=== PATIENT | female | born 1940 | race Caucasian/White ===

== ENCOUNTER 2017-08-01 08:31 | Emergency (ER) | payer MEDICARE, SELFPAY ==
[2017-08-01 08:32] VITALS: BP 183/93; PULSE 85; RESP 18; TEMP 36.6; O2SAT 99; BMI 25.0
--- NOTE | 2017-08-01 08:44 | CT_ITS ---
STUDY: CT BRAIN WITHOUT CONTRAST REASON FOR EXAM: Female, 77 years old. And injury following a fall. RADIATION DOSAGE (If Supplied By Facility): CTDIvol = ( 44.99 ) mGy, DLP = ( 765.18 ) mGycm TECHNIQUE: Transaxial CT imaging of the brain was performed without administration of intravenous contrast material. Individualized dose optimization techniques were used for this CT. COMPARISON: None. FINDINGS: Normal soft tissue structures. Normal calvarium. There is mild cerebral atrophy with widening of the extra-axial spaces and ventricular dilatation. There are areas of decreased attenuation within the white matter tracts of the supratentorial brain, consistent with microvascular disease changes. Normal basal ganglia and thalami. Normal brainstem. Normal cerebellum. There is no intracranial hemorrhage. There are no findings of an acute ischemic infarction. Atherosclerotic calcification of the vertebral arteries and cavernous portions of the internal carotid arteries bilaterally. Normal visualized paranasal sinuses. CT/Brain/Head without Contrast IMPRESSION: Chronic involutional changes of the brain. Electronically Signed: Jovanni Beverly MD at 9:23 EST Tel [phone], Service support ,
--- NOTE | 2017-08-01 08:45 | CT_ITS ---
STUDY: CT CERVICAL SPINE WITHOUT CONTRAST REASON FOR EXAM: Female, 77 years old. Fall and injury to the occipital region. RADIATION DOSAGE (If Supplied By Facility): CTDIvol = ( 18.28 ) mGy, DLP = ( 421.26 ) mGycm TECHNIQUE: High resolution transaxial imaging was performed without contrast material. Sagittal and coronal images were reconstructed. Individualized dose optimization techniques were used for this CT. COMPARISON: None FINDINGS: Normal craniovertebral junction. Normal anterior atlantoaxial articulation. Normal odontoid process. There is straightening of the normal cervical lordosis. Normal vertebral bodies and posterior osseous elements. C2-3: Normal endplates. Normal disc height and morphology. Normal central canal and intervertebral neuroforamina. C3-4: Normal endplates. Normal disc height and morphology. Normal central canal and intervertebral neuroforamina. C4-5: Marked degree of disc space narrowing and spondylosis. Uncovertebral arthrosis. Moderate degree of bilateral neural foraminal stenosis worse on the right side. C5-6: Marked degree of disc space narrowing and spondylosis. Uncovertebral arthrosis. Mild bilateral neural foraminal stenosis. Minimal retrolisthesis of C5 on C6. C6-7: Mild degree of disc space narrowing with spondylosis. Normal visualized soft tissue structures. CT/Spine Cervical without Contras IMPRESSION: Multilevel degenerative changes, as described above. Electronically Signed: Jovanni Beverly MD at 9:24 EST Tel [phone], Service support ,
--- NOTE | 2017-08-01 08:45 | ED.VISSUMM ---
- ER Visit Summary Date of Service: 08/01/17 Chief Complaint: Head injury, neck pain History of Present Illness: The patient is a 77 F who presents with head pain and neck pain. One week ago today she was skiing in [place] when she fell. She was wearing a helmet at that time. She was able to ski down the hill and she laid in the hotel room for the rest of the week. She did not return to skiing. Since then she has had pain in the head and neck. She has felt off balance. There was no LOC when she fell. She has a history of torticollis of the neck and gets Botox injections of her neck. She feels like it is stiff. Denies any numbness or tingling. Physical Examination: Vital signs reviewed. HEENT exam unremarkable. Heart is regular rate and rhythm without murmurs. Lungs are clear to auscultation. Abdomen is soft and nontender. Extremities reveal no edema. Cervical spine is nontender but she has decreased range of motion due to stiffness skin exam normal. Neurologic exam normal. Test Results: CT scan of the head and cervical spine reveal chronic, degenerative changes Emergency Department Course and Treatment: Patient likely has a mild concussion. I do not feel she requires any further imaging or testing. She will take nonsteroidals [id number]. She will ice her neck. She will need to follow-up with her PCP and her neurologist. Treatment Plan: [] Disposition: Discharge Impression: Concussion without loss of consciousness This note was generated with [employer] dictation software. It may contain incorrect words, spelling, and punctuation that were not noted in review of the chart prior to signing ED Disposition - Plan for ED Patient: Chief Complaint: Head Injury Referrals: Ness Mcbride MD [Primary Care Provider] -
--- NOTE | 2017-08-01 09:17 | NURSING ---
NO LW OR POA
--- NOTE | 2017-08-01 09:36 | ED.DEP ---
ED Disposition - Plan for ED Patient: Disposition: Home or Assisted Living Chief Complaint: Head Injury Instructions: ED Concussion Referrals: Ness Mcbride MD [Primary Care Provider] -
[2017-08-01 09:52] VITALS: PULSE 86; RESP 16; O2SAT 96
== END 2017-08-01 09:53 | disposition home or self-care (01) ==
PROVIDERS: Emergency Provider Emergency Medicine; Family Provider Internal Medicine; PCP Internal Medicine
DX: S06.0X0A Concussion without loss of consciousness, initial encounter (principal); M43.6 Torticollis; R40.2410 Glasgow coma scale score 13-15, unspecified time; E78.00 Pure hypercholesterolemia, unspecified; V00.321A Fall from snow-skis, initial encounter; Y93.23 Activity, snow (alpine) (downhill) skiing, snowboarding, sledding, tobogganing and snow tubing; Y92.9 Unspecified place or not applicable; Z79.899 Other long term (current) drug therapy
CPT/HCPCS: 70450; 72125; 99282

== ENCOUNTER 2018-01-20 09:00 | Outpatient (RCR) | payer MEDICARE, SELFPAY ==
--- NOTE | 2017-11-15 13:50 | HP.PTEVAL_ITS ---
Patient's Visit Information VASYL KELLY is a 77 year old F referred to Physical Therapy by Marek Higginbotham with a diagnosis of L TKA. Date of Evaluation: 11/11/17 Physical Therapist: Desmond Ascencio - Visit Plan Frequency: 2x /Week Duration: 6 Weeks Plan: Start with ROM into knee ext and flexion. Quad, glute med activitation. HS stretching, gait training and modalities to reduce inflammatory process. - Subjective Subjective: Pt. is here today for her initial evaluation with unilateral L knee OA with subsequent L TKA. DOS 11/02/17. Pt. is WBAT. Pt. reports having a history of 2 L knee arthroscopes prior to this surgery. Pt. arrives today walking with cane, but tends to walk very straight legged. Pt. reports pain at 5 /10 with all movements and standing. Pt. is icing as prescribed. Pt. reports working on prior exercises to surgery and is back to doing them. Pt. denies N/T or calf pain. Pt. is to see surgeon in early November. Pt. prior to surgery was very active in community and in gym with classes and exercises. Pt. is hopeful to reduce symptoms in order to get back to all PLOF without issues. - Pain L knee Pain Intensity (Out of 10): 5 Pain Intensity Range: 2, 5 - Objective POSTURE: Pt. has increased R sided wt. shift in stance. Pt. lacks TKE on LLE in stance with decreased WBing on this leg. Pt. else where has normal posture. PALPATION: Pt. has increased tenderness throughout L knee. Pt. has no calf pain , negative homans sign. Pt. has heeling incision. Pt. does have increased redness along incision, no drainage noted. NEUROLOGICAL: Pt. has normal sensation throughout bilateral LEs. Pt. has 2+ achilles DTR. Pt. is able to rise on heels and toes without issues. No signs of weakness or LOB. ROM: L knee 0-12-78deg. Increased pain with over pressures in flexion and extension. Pt. has normal hip ROM bilatearlly. Pt. has tightness in bilateral HS and hip flexors. R kne 0-0-128deg. MMT: RLE- ankle 5/5 throughout; knee- ext 5-/5, flexion 4+/5; hip- flexion 4+/5, abd 4/5, ext 4/5. LLE- ankle 5/5 throughout; knee- ext 4-/5; flexion 4/5; hip- flexion 4-/5, and 4/5, ext 4/5. Core strenth- poor+. GAIT: Pt. ambulates with single point cane, but minimal knee motion into ext and flexion. Pt. keeps a rigid knee throughout. Pt. has increased R sided trunk lean with gait. Pt. had improved knee ROM with VCing. STAIRS: Pt. completed with step to pattern with 2 HR without LOB or issues. - Goals Goal 1:: Pt. to be I with HEP. Goal Time Frame: 4-6 Weeks Goal 2:: Pt. to have increased L knee ROM to atleast 0-0-120deg allowing for increased toleance to all mobility. Goal Time Frame: 4-6 Weeks Goal 3:: Pt. to ambulate unlimited distances with 0-2/10 pain without AD allowing for increased tolerance to community mobility. Goal Time Frame: 4-6 Weeks Goal 4:: Pt. to have increased LLE strength by 1/2 grade of all effected musculature reducing stress applied to L knee joint with all functional mobility. Goal Time Frame: 4-6 Weeks Goal 5:: Pt. to sleep throughout the night without 0-2/10 pain in L knee allowing for increased quality of life. Goal Time Frame: 4-6 Weeks Goal 6:: Pt. to negotiate steps with reciprocal pattern with 1 HR without increase in symptoms. Goal Time Frame: 4-6 Weeks - Rehabilitation Potential Physical Therapy Diagnosis: L total knee arthroplasty with subsequent hypomobility, decreased strength, decreased functional mobility, gait difficulty , and increased pain. She would benefit from PT to address above limitations adn progress back to prior levels of function without issues. Rehabilitation Potential: Excellent - Anticipated Interventions Patient/Client Instruction: Educate patient on: Condition, Plan of Care, Risk Factors, Benefits of Fitness Program For the Purpose of:: To improve health and function, To foster healthy habits, To improve decision making, To facilitate caregiver knowledge, To improve self management, To prevent re-injury, To improve ability to perform tasks related to life management, To improve tolerance to ADL's Therapeutic Exercise to Include: Strength training, Power training, Endurance training, Body mechanics, Postural training, Flexibilty training, Gait and locomotor training, Passive ROM, Active ROM For the Purpose of:: To decrease pain, To decrease swelling/inflammation, To increase ROM, To improve nutrient delivery to tissue, To increase oxygenation perfusion, To improve muscle performance and motor function, To improve ability to perform ADL's, To improve gait and locomotor functions, To improve health of tissue, To decrease soft tissue restriction, To increase flexibility/ROM, To improve balance, To improve safety with gait Manual Therapy Techniques to Include: Mobilization, Passive ROM, Soft tissue mobilization For the Purpose of:: To decrease pain, To decrease swelling/inflammation, To increase ROM, To improve nutrient delivery to tissue IF ES: Yes Cryotherapy (ice pack, ice massage): Yes Vasopneumatic device: Yes For the Purpose of:: To decrease pain, To decrease swelling/inflammation, To increase ROM Thank you for the opportunity to evaluate your patient. For Medicare and Medicare HMO plans, please review the plan of care and approve it. It will need to be FAXED BACK to us at [phone] for Medicare purposes. Please let me know if there are questions or concerns regarding this plan of care. Physician Signature: Date:
--- NOTE | 2017-12-20 10:02 | HP.PTREVAL_ITS ---
Marek Higginbotham, It has been my pleasure to treat VASYL KELLY over the last 12 visits for L TKA. Please see the progress note below for an update on the physical therapy plan of care! Subjective: Pt. reports no pain pre treatment today. Pt. reports no pain since last week. Pt. pleased with reduced symptoms. Pt. reports I am getting there, but I still want to get back to my classes. I think I need to be a little stronger first. Pt. reprots being HEP compliant. Objective/Function: Pt. toelrated all PT without adverse reaction. ROM 0-0- 118deg Active, PROM 0-0-122deg. Cont. to work on actrive ROM. MMT- L ankle- 5/ 5 throughout; knee- ext 4+/5. flexion 4/5; hip- flexion 4+/5, abd 4+/5, ext 4/ 5. Core strenth- fair. GAIT: pt. ambulates with normal pattern, lateral lateral hip translation. STAIRS: pt. has mild tenderness with descending, 1 HR to complete with reciprocal pattern. Pt. has desires to get back to dynamic HIT classes, yoga classes and therefor would benefit from continued PT to focus on active end range of motions and cont to progress LLE stability and strengthening. Plan Plan: Extend POC x2 per week for 4 weeks. Focus on increasing active ROM, L knee stability and LLE strength with functional mobility. Goals Goal 1:: Pt. to be I with HEP. Goal Time Frame: 4-6 Weeks Goal Progress: Goal Met Goal 2:: Pt. to have increased L knee ROM to atleast 0-0-120deg allowing for increased toleance to all mobility. Goal Time Frame: 4-6 Weeks Goal Progress: Progressing Goal 3:: Pt. to ambulate unlimited distances with 0-2/10 pain without AD allowing for increased tolerance to community mobility. Goal Time Frame: 4-6 Weeks Goal Progress: Progressing Goal 4:: Pt. to have increased LLE strength by 1/2 grade of all effected musculature reducing stress applied to L knee joint with all functional mobility. Goal Time Frame: 4-6 Weeks Goal Progress: Progressing Goal 5:: Pt. to sleep throughout the night without 0-2/10 pain in L knee allowing for increased quality of life. Goal Time Frame: 4-6 Weeks Goal Progress: Goal Met Goal 6:: Pt. to negotiate steps with reciprocal pattern with 1 HR without increase in symptoms. Goal Time Frame: 4-6 Weeks Goal Progress: Progressing Anticipated Interventions Patient/Client Instruction: Educate patient on: Condition, Plan of Care, Risk Factors, Benefits of Fitness Program For the Purpose of:: To improve health and function, To foster healthy habits, To improve decision making, To facilitate caregiver knowledge, To improve self management, To prevent re-injury, To improve ability to perform tasks related to life management, To improve tolerance to ADL's Therapeutic Exercise to Include: Strength training, Power training, Endurance training, Body mechanics, Postural training, Flexibilty training, Gait and locomotor training, Passive ROM, Active ROM For the Purpose of:: To decrease pain, To decrease swelling/inflammation, To increase ROM, To improve nutrient delivery to tissue, To increase oxygenation perfusion, To improve muscle performance and motor function, To improve ability to perform ADL's, To improve gait and locomotor functions, To improve health of tissue, To decrease soft tissue restriction, To increase flexibility/ROM, To improve balance, To improve safety with gait Manual Therapy Techniques to Include: Mobilization, Passive ROM, Soft tissue mobilization For the Purpose of:: To decrease pain, To decrease swelling/inflammation, To increase ROM, To improve nutrient delivery to tissue IF ES: Yes Cryotherapy (ice pack, ice massage): Yes Vasopneumatic device: Yes For the Purpose of:: To decrease pain, To decrease swelling/inflammation, To increase ROM Please do not hesitate to contact me at [phone] by phone or Fax: if you have questions or concerns regarding this new plan of care! Sincerely, Desmond Ascencio
--- NOTE | 2018-01-20 12:50 | HP.PTDCSUM ---
HP - PT D/C Summary It has been my pleasure to treat VASYL KELLY under orders from Marek Higginbotham, for the diagnosis of L TKA for a total of 20 visit(s). Discharge Date: 01/20/18 Please see the following information for a summary of their discharge status. - Subjective Subjective: Pt. reports being about 90% better overall. Pt. reports being HEP compliant and has started back to all of her aerobic classes without issues. Pt. is very pleased with progress. Pt. reports no pain currently. - Pain L knee Pain Intensity (Out of 10): 0 - Overall Improvement % Improvement: 90 - Objective Objective/Function: ROM- AROM 0-0-117deg. PROM 0-0-123deg. Pt. reports tightness at end ranges of flexion. MMT- L knee: flexion 4+/5, ext 5/5; hip- flexion 5-/5, adb 5-/5, ext 5-/5. GAIT: pt. ambulates with normalized pattern without increase in symptoms. STAIRS: Pt. does very well with ascending, she does have some functional weakness with end ranges descending on RLE. Pt. is donovan tocomplete with reciprocal pattern without use of HR. Pt. pleased. - Goals Goal 1:: Pt. to be I with HEP. Goal Progress: Goal Met Goal 2:: Pt. to have increased L knee ROM to atleast 0-0-120deg allowing for increased toleance to all mobility. Goal Progress: Goal Met Goal 3:: Pt. to ambulate unlimited distances with 0-2/10 pain without AD allowing for increased tolerance to community mobility. Goal Progress: Goal Met Goal 4:: Pt. to have increased LLE strength by 1/2 grade of all effected musculature reducing stress applied to L knee joint with all functional mobility. Goal Progress: Goal Met Goal 5:: Pt. to sleep throughout the night without 0-2/10 pain in L knee allowing for increased quality of life. Goal Progress: Goal Met Goal 6:: Pt. to negotiate steps with reciprocal pattern with 1 HR without increase in symptoms. Goal Progress: Goal Met - Plan Plan: Pt. to be DC to HEP including aerobic classes, cycling classes. Pt. is to add in hip/core/knee strengthening as toleraetd to increase stability at knee joint with all functional moblity. Pt. consents. - D/C Information Discharge Comments: Pt. was seen for her L TKA. Pt. progressed well with her ROM and then strengtening progression. Pt. is very active with exercises classes. Pt. is independent with all exercises currently. Pt. does have desires to skii again. She plans on approaching physician for brace once that season approaches. PT. will be DC from PT at this point in time. If there are questions or concerns regarding this patient's physical therapy, please feel free to call me at [phone]. Thank you for the referral of this patient. Sincerely, Desmond Ascencoi
== END 2018-01-20 19:00 | disposition home or self-care (01) ==
LOC: PT 09:00
PROVIDERS: Family Provider Internal Medicine; PCP Internal Medicine; Visit Provider Orthopaedic Surgery
DX: M17.12 Unilateral primary osteoarthritis, left knee (principal)
CPT/HCPCS: 97016; 97110; 97162; 97530

== ENCOUNTER 2021-03-24 01:51 | Emergency (ER) | payer MEDICARE, SELFPAY ==
[2021-03-24 01:52] VITALS: TEMP 36.8; BMI 25.3
[2021-03-24 01:58] VITALS: BP 164/79; PULSE 94; RESP 18; O2SAT 98
--- NOTE | 2021-03-24 02:12 | RAD_ITS ---
STUDY: X-RAY CHEST REASON FOR EXAM: Female, 81 years old. Cough TECHNIQUE: Single AP portable view of the chest. COMPARISON: None. FINDINGS: No confluent airspace infiltrate. Mild prominence of interstitial markings at bilateral lung bases. No pleural effusion or pneumothorax. Normal size heart. Normal mediastinum and jyoti. Normal visualized pulmonary arteries. There is atherosclerotic calcification of the aortic arch . There are diffuse degenerative changes of the visualized thoracic spine. Normal visualized ribs, clavicles, and shoulders. There is no demonstrated abnormality of the visualized soft tissue structures of the upper abdomen. RAD/Chest 1 View (Portable) IMPRESSION: No acute cardiopulmonary disease Electronically Signed: Farhat Rashid MD at 2:48 EDT Tel , Service support ,
--- NOTE | 2021-03-24 02:12 | EX.ED.VIS.UR ---
HPI HPI - URI History of Present Illness Chief Complaint: Shortness of Breath Informant: patient Onset/Context/Timing Onset: Yesterday Context: Sudden Onset Timing: Continuous Quality: Nonproductive cough, loss of taste and smell, myalgias and arthralgias Location: Respiratory Maximum Severity: Moderate Worsened by: Not Worsened By Swallowing, Eating Solids and Drinking Liquids Relieved by: Not Relieved By Tylenol and NSAIDs Associated Symptoms Associated Symptoms: Positive for Headache, Myalgias, Nausea, Shortness of Breath and Nonproductive cough; Negative for Nasal Congestion, Sinus Pressure, Vomiting, Diarrhea, Chest Pain, Hemoptysis and Productive Cough Narrative Narrative: Patient is a 81-year-old vaccinated person with history of hypertension and hypothyroidism who presents with symptoms consistent with Covid that started yesterday. She states she went to [facility]. She had to stop because she was short of breath and did not feel well. She almost vomited on the way home. She has lost her taste and smell. She does report nonproductive cough. She reports myalgias and arthralgias. She reports nausea without vomiting or diarrhea. She does complain of thirst. She denies joint swelling. She denies rash. Prior similar symptoms: No Recent Illness/Hospitalization: No ROS ROS ED Constitutional Constitutional ED: Reports fever(s) and subjective; Denies chills, sweats or weight loss Eyes Eyes: Denies blurry vision, change in vision or diplopia ENT ENT ED: Reports sore throat; Denies ear pain or rhinorrhea Cardiovascular Cardiovascular: Denies chest pain, orthopnea, palpitations, paroxysmal nocturnal dyspnea or racing heartbeat Respiratory/Chest Respiratory/Chest: Reports cough, dyspnea and dyspnea on exertion; Denies orthopnea, paroxysmal nocturnal dyspnea or sputum Gastrointestinal Gastrointestinal: Reports nausea; Denies abdominal pain, constipation, diarrhea or vomiting Genitourinary Genitourinary ED: Denies dysuria, hematuria or urinary frequency Musculoskeletal Musculoskeletal: Reports arthralgias and myalgias; Denies back pain or neck pain Integumentary Denies rash Neurologic Neurologic: Reports weakness; Denies headache(s) or paresthesias Endocrine Endocrinology: Denies polydipsia, polyphagia or polyuria Hematologic/Lymphatic Hematologic/Lymphatic: Denies easy bleeding or easy bruising [facility] Medical History High cholesterol HTN (hypertension) Home Medications levothyroxine 88 mcg PO DAILY 08/01/17 [History Last Taken Unknown] lisinopril 5 mg PO DAILY 08/01/17 [History Last Taken Unknown] lovastatin 20 mg PO DAILY 08/01/17 [History Last Taken Unknown] hydrocodone-homatropine [Hycodan] 5 ml PO Q6H PRN 3 Days #60 ml 03/24/21 [Rx Last Taken Unknown] Allergy/AdvReac Type Severity Reaction Status Date / Time No Known Allergies Allergy Verified 03/24/21 01:54 Social History (Updated 03/24/21 @ 02:[address] Elliot Quintero MD) household members: none Smoking Status: Never smoker alcohol intake: current alcohol intake frequency: a few times a month substance use type: does not use EXAM Physical Exam Const Vital Signs: 03/24/21 01:52 03/24/21 01:57 03/24/21 01:58 Temperature 98.3 F Temperature Source Temporal Pulse Rate 94 Respiratory Rate 18 Respiratory Effort Normal Non-Labored Respiratory Depth Normal Respiratory Pattern Normal Blood Pressure 164/79 H Blood Pressure Mean 107 Pulse Ox 98 Oxygen Delivery Method Room Air Room Air Positive well nourished and well developed General Appearance ED: well developed; Negative for pallor HEENT Reports dry mucous membranes normocephalic and atraumatic External Ear: external ears normal and no preauricular adenopathy Mouth ED: Yes dry mucous membranes Mouth: dry mucous membranes Throat: posterior oropharynx normal Eyes PERRL and EOMs intact bilaterally General Eye ED: Negative for pale conjunctiva or scleral icterus Neck no lymphadenopathy, supple, no meningeal signs and no JVD Resp normal respiratory effort and No clear to auscultation bilaterally Auscultation: rales bilateral base Cardio S1 normal heart sound, S2 normal heart sound and no murmurs Rate: regular rate Rhythm: regular rhythm Bruits: Negative for carotid bruit or abdominal aortic bruit GI non-tender, non-distended and no masses Auscultation: normoactive bowel sounds Palpation: soft Back/Spine no CVA tenderness Extremity normal to inspection and full ROM General Extremety ED: Negative for cyanosis or tenderness General Extremity: Negative for cyanosis Neuro oriented x3 and CN's II-XII intact bilaterally Sensorium / Orientation: alert Psych mental status grossly normal Skin General Skin Exam: Negative for jaundice or pallor Lesions: no lesions Rashes: no rashes MDM MDM MDM Narrative Medical decision making narrative: Clinically patient has Covid pneumonia. Chest x-ray is obtained to confirm pneumonia as well as basic blood work to rule out anemia, kidney injury, electrolyte abnormality and Covid test. Even though the Covid test is negative clinically patient has upper respiratory symptoms with loss of taste and smell that occurred within the last 6 to 12 hours. Suspect the rapid is a false negative. Patient was told quarantine for 10 days. She was prescribed Hycodan for her cough. The dose she was given in the emergency room suppressed her cough. She feels much better. Lab Data Attestation: I reviewed the patient's lab results. Labs: Laboratory Results - last 24 hr 03/24/21 03/24/21 02:30 02:30 WBC 8.0 RBC 4.33 Hgb 13.3 Hct 39.9 MCV 92.1 MCH 30.7 MCHC 33.3 RDW Std Deviation 41.7 RDW Coeff of Adams 12.4 Plt Count 206 MPV 9.9 Immature Gran % (Auto) 0.400 Neut % (Auto) 75.5 H Lymph % (Auto) 15.0 L [place] % (Auto) 7.1 Eos % (Auto) 1.4 Baso % (Auto) 0.6 Absolute Neuts (auto) 6.0 Absolute Lymphs (auto) 1.20 Nucleated RBC % 0 Sodium 141 Potassium 4.0 Chloride 110 H Carbon Dioxide 23.0 Anion Gap 8 BUN 17 Creatinine 0.92 Estim Creat Clear Calc 41.02 Est GFR (MDRD) Af Amer 75 Est GFR (MDRD) Non-Af 62 BUN/Creatinine Ratio 18.4 Glucose 110 H Calcium 9.3 Covid test is negative. Radiography Diagnostic Testing: Radiology Impression Chest X-Ray 03/24/21 02:12 IMPRESSION: No acute cardiopulmonary disease Electronically Signed: Farhat Rashid MD at 2:48 EDT Tel , Service support , Single view portable chest x-ray was interpreted by me at 0236 as negative. Cardiac silhouette size normal. Mediastinum normal. Lung parenchyma normal. Osseous structures are normal. Discharge Plan Triage Chief Complaint: Shortness of Breath Other Complaint: Cough ED Provider: Elliot Quintero Dx/Rx/DC Orders Clinical Impression: COVID-19 determined by clinical diagnostic criteria Instructions: Coronavirus Disease 2019 (COVID-19): Caring for Yourself or Others Prescriptions: New hydrocodone-homatropine [Hycodan] 5-1.5 mg/5 mL (5 mL) syrup 5 ml PO Q6H PRN (Reason: cough) 3 Days Qty: 60 RF: 0 No Action levothyroxine 88 MCG tablet 88 mcg PO DAILY RF: 0 lisinopril 5 MG tablet 5 mg PO DAILY RF: 0 lovastatin 20 MG tablet 20 mg PO DAILY RF: 0 Primary Care Provider: Ness Mcbride Referrals: Ness Mcbride MD [Primary Care Provider] - 10-14 Days if not better Activity Restrictions/Additional Instructions: Self quarantine for the next 10 days If you are unable to walk across the room or are concerned because you have significant shortness of breath, please return to the emergency department. Disposition Disposition: Home, Self Care
[2021-03-24 02:36] LABS: Basophil# 0.05 X10^3/uL; Basophil% 0.6 % (0-1); Eosinophil# 0.11 X10^3/uL; Eosinophils% 1.4 % (0-5); Hematocrit 39.9 % (37-47); Hemoglobin 13.3 g/dL (12.0-15.0); Mean Corp Hgb Conc 33.3 g/dL (32-36); Mean Corpuscular Hgb 30.7 pg (27.0-32.0); Mean Corpuscular Volume 92.1 fL (81-99); Mean Platelet Vol. 9.9 fl (6.2-12.0); Monocyte# 0.57 X10^3/uL; Monocyte% 7.1 % (0-10); NRBC Flagged by Analyzer 0 % (0-5); Neutrophil # 6.02 X10^3/uL (2.7-7.7); Neutrophil % 75.5 % (47-70); Platelet Count 206 K/mm3 (150-450); RBC Distribution Width CV 12.4 % (11.6-14.6); RBC Distribution Width SD 41.7 fl (35.1-43.9); Red Blood Count 4.33 M/mm3 (4.2-5.4)
[2021-03-24 02:56] LABS: Anion Gap 8 (5-15); BUN 17 mg/dL (7-18); BUN/Creat Ratio 18.4 RATIO (10-20); Calcium,Total 9.3 mg/dL (8.5-10.1); Chloride 110 mmol/L (98-107); Creatinine, Serum 0.92 mg/dL (0.55-1.02); EST Glomerular Filtration Rate 62 mL/min (>60); Est Glom Filt Rate - Afr Amer 75 mL/min (>60); Estimated Creatinine Clearance 41.02 ml/min; Glucose 110 mg/dL (74-106); Sodium Level 141 mmol/L (136-145)
[2021-03-24 03:49] VITALS: BP 173/80; PULSE 82; RESP 19; O2SAT 97
== END 2021-03-24 03:49 | disposition home or self-care (01) ==
PROVIDERS: Emergency Provider Emergency Medicine; PCP Internal Medicine
DX: U07.1 COVID-19 (principal); I10 Essential (primary) hypertension; E03.9 Hypothyroidism, unspecified; Z79.899 Other long term (current) drug therapy
CPT/HCPCS: 71045; 80048; 85025; 87426; 99285; A4216

== ENCOUNTER 2022-11-24 13:30 | Outpatient (RCR) | payer MEDICARE, SELFPAY ==
--- NOTE | 2022-10-04 09:17 | HP.PTEVAL ---
Patient's Visit Information VASYL KELLY is a 82 year old F referred to Physical Therapy by Burak Sharma PA-C with a diagnosis of L hip pain, , IDD, radiculopathyt. Date of Evaluation: 10/04/22 Physical Therapist: Demetri Sawyer, DPT, OCS, CSCS - Visit Plan Frequency: 3x /Week Duration: 4-6 Weeks Plan: patient significantly better today and will try to wean back to activitiy on her own. Llikely was mostly soft tissue inflammation and is 80% better. if pain returns once prednisone gone then will see 2-3x/week for 4 weeks for soft tissue work to gluts and HS, hip and core strength, TENS if needed and wean back to activity. MH. pt to call in next week to 10 days if pain returns or activity progress stagnates or if questions/concerns regarding activity. - Subjective [place] snow mob[place] 28 [place] very bumpy. Hurt during and after back and hips and legs. Hamstrings and gluts were terrible 2 hours later. Was trying to keep butt up off seat alot. Missed two days of skiing and then flew home and could not walk or sit. Tried to get to [employer] for 3 weeks, ended up with Aníbal sharma. Took x rays: degenerative severe in hips and low back spine. has had slight scoliosis in the spine. That pain lasted a month. Given prednisone and muscle relaxer. They have helped tremendously. Overall 80% better. Today 2/10 pain and this is a good day and gradually improving. Does not have back or hip pain right now or prior to this happening. Sleep is OK now but was up at night. Today will be last prednisone. Avoids kettle belss in gyma nd reduce weight, had to modify Sherley and cardio class. Workout is effected. Activities at home are delayed, takes 2x as long as usual to trim tree. Basic ADLS are getting done. 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 - Pain HS and gluts Pain Intensity (Out of 10): 2 Pain Intensity Range: 2, 10 - Objective Walks into PT without antalgia normal and I. Steps reciprocal without rail I without pain, she says this is much better than last week. squats and RDL technique without deficit or pain. AROM L/S without pain. Hip ROM limited only in IR L 5 and R 8 degrees with only slight 1/10 transient L hip pain. - ELIGIO, - ZACKARY. knee and ankle aROM WFL. Excellent mobility in quads and HS, l knee AROM limited due to knee replacement. reflexes 1/3 patella and achilles. Sensation LE WNL tog ross light touch. Strength ankles 4+, knees 4+, no pain. Hips abduction and extension 4-/5, flexion 4+, no pain. - LSR, - SLump test. Tenderness nto a problem in paraspinals, gluts or HS today, minimal B tenderness over HS origin on ischial tub but just slight. - Balance/Special Test Scores Lower Extremity Functional Score: 27 - Goals Goal 1:: patient feel 95% back to normal pain and activity Goal Time Frame: 4-6 Weeks Goal 2:: walk 2.5 miles without pain Goal Time Frame: 4-6 Weeks Goal 3:: 50 LEFS Goal Time Frame: 4-6 Weeks - Rehabilitation Potential Physical Therapy Diagnosis: Improving glut and HS pain B with prednisone and time. Rehabilitation Potential: Fair - Anticipated Interventions Patient/Client Instruction: Educate patient on: Condition, Plan of Care For the Purpose of:: To decrease pain, To improve nutrient delivery to tissue, To increase oxygenation perfusion, To increase tolerance to activity/condition/position Therapeutic Exercise to Include: Strength training, Flexibilty training For the Purpose of:: To decrease pain, To increase ROM, To improve nutrient delivery to tissue, To improve muscle performance and motor function Manual Therapy Techniques to Include: Soft tissue mobilization For the Purpose of:: To decrease pain, To decrease swelling/inflammation TENS: Yes For the Purpose of:: To decrease pain Thank you for the opportunity to evaluate your patient. For Medicare and Medicare HMO plans, please review the plan of care and approve it. It will need to be FAXED BACK to us at [phone] for Medicare purposes. For Medicare only, by signing this I certify the plan of care. Please let me know if there are questions or concerns regarding this plan of care. Physician Signature: Date:
--- NOTE | 2022-11-24 14:17 | HP.PTDCSUM ---
It has been my pleasure to treat VASYL KELLY referred by Burak Sharma PA-C, with the diagnosis of L hip pain, , IDD, radiculopathyt for a total of 14 visit(s). Discharge Date: 11/24/22 Please see the following information for a summary of their discharge status. Subjective: Very well I am doing. Excellent improvement. Did yoga and cardio fusion this am without pain. Has not been walking only because she has been busy. Sitting is comfortable. Not avoiding anything else. HS and gluts Pain Intensity (Out of 10): 0 % Improvement: 95 Objective/Function: Tender L PSIS slightly, Good ROM in hip symmetrical with R. Strength hip extension 4/5 B without pain. Walking well and subjectively near back to normal Goal 1:: patient feel 95% back to normal pain and activity Goal Progress: Goal Met Goal 2:: walk 2.5 miles without pain Goal 3:: 50 LEFS Goal Progress: Goal Met Plan: d/c to [facility] If there are questions or concerns regarding this patient's physical therapy, please feel free to call me at [phone]. Thank you for the referral of this patient. Sincerely, Demetri Sawyer, DPT, OCS, CSCS Balance/Gait/Functional tests - Balance/Special Test Scores Lower Extremity Functional Score: 55
== END 2022-11-24 14:21 | disposition home or self-care (01) ==
LOC: PT 13:30
PROVIDERS: PCP Internal Medicine; Referring Provider Physician Assistant; Visit Provider Physician Assistant
DX: M51.36 Other intervertebral disc degeneration, lumbar region (principal); M54.16 Radiculopathy, lumbar region; M25.552 Pain in left hip
CPT/HCPCS: 97035; 97110; 97140; 97161; 97164; 97530

== ENCOUNTER 2025-02-13 10:31 | Emergency (ER) | payer MEDICARE, SELFPAY ==
[2025-02-13 10:34] VITALS: BP 174/94; PULSE 102; RESP 16; TEMP 36.6; O2SAT 99; BMI 24.0
--- NOTE | 2025-02-13 10:51 | ED.RN ---
PT HAS BEEN SEEING A NEURO SPECIALIST FOR [place] SINCE 2011, SINCE THEN SHE HAS BEEN HAVING BOTOX INJECTIONS EVERY 90 DAYS. SHE STARTED WITH 280 UNITS, MOVED TO 300 UNITS, AND RECENTLY IN DECEMBER INCREASED MORE THAN 300 PER PT. SHE HAS BEEN SUCCESSFUL IN STOPPING TREMORS BUT A NEW SX IS PAIN ON THE LEFT SIDE OF THE NECK. SHE CAN LOOK UP AND DOWN FINE. SHE LOOKS LEFT AND ITS PAINFUL ON THE LEFT SIDE. SHE TURNS TO THE RIGHT AND ITS PAINFUL ON THE LEFT.
--- NOTE | 2025-02-13 11:18 | EX.ED.DYSGE1 ---
HPI History of Present Illness Chief Complaint: Other, Pain/Inj Informant: patient Onset/Context/Timing Onset: Days (2) Context: Gradual Onset Timing: Continuous Quality: Aching Location: Left cervical paraspinal area Worsened by: Movement Relieved by: Sitting upright Narrative Narrative: Patient presents with neck pain that has been getting worse over the past 2 days. Patient states is gradually felt worse. Patient denies any trauma or injury. Patient states her pain is mainly over the left side of her neck. Patient states it is worse with movement. Patient states it is better when she sits upright. Patient admits to a mild cough. Patient also admits to some nausea but denies any vomiting. Patient denies any fevers or chills. Patient denies any headache. Patient denies any back pain. Patient denies any paresthesias or weakness. PFSH [facility] Medical History (Updated 02/13/25 @ 12:[address] 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 High cholesterol HTN (hypertension) Home Medications ?Medication ?Instructions ?Recorded ?Last Taken ?Type levothyroxine 88 mcg tablet 88 mcg PO DAILY 08/01/17 Unknown History lisinopril 5 mg tablet 5 mg PO DAILY 08/01/17 Unknown History lovastatin 20 mg tablet 20 mg PO DAILY 08/01/17 Unknown History hydrocodone-homatropine 5 mg-1.5 5 ml PO Q6H PRN cough 3 days #60 mL 03/24/21 Unknown Rx mg/5 mL (5 mL) oral solution (Hycodan) cyclobenzaprine 10 mg tablet 10 mg PO QHS PRN PRN Muscle Spasm 02/13/25 Unknown Rx #10 TABLETS hydrocodone-acetaminophen 5-325mg 1 tab PO Q6H PRN PRN Pain 3 days 02/13/25 Unknown Rx 5mg-325mg #10 TABLETS Allergy/AdvReac Type Severity Reaction Status Date / Time No Known Allergies Allergy Verified 02/13/25 10:54 Family History (Updated 02/23/23 @ 15:07 by Deepali Block) Mother COPD (chronic obstructive pulmonary disease) Gastroparesis Type 2 diabetes mellitus TIA (transient ischemic attack) Father Alcoholism Heart disease Smoker Skin cancer Surgical History (Updated 02/13/25 @ 11:[address] Demetri Shah, DO) Hx of tonsillectomy Hx of tubal ligation History of repair of right rotator cuff History of left knee replacement S/P arthroscopic reconstruction of ACL of right knee using quadriceps tendon autograft Social History household members: none Smoking Status: Never smoker alcohol intake: current alcohol intake frequency: a few times a month substance use type: does not use ROS ROS ED Constitutional Constitutional ED: Denies chills or fever(s) Eyes Eyes: Denies blurry vision or change in vision ENT ENT ED: Denies rhinorrhea or sore throat Cardiovascular Cardiovascular: Denies chest pain or palpitations Respiratory/Chest Respiratory/Chest: Reports cough; Denies dyspnea Gastrointestinal Gastrointestinal: Reports nausea; Denies vomiting Genitourinary Genitourinary ED: Denies dysuria or hematuria Musculoskeletal Musculoskeletal: Reports neck pain; Denies back pain Integumentary Denies abscess or rash Neurologic Neurologic: Denies headache(s) or weakness Allergic/Immunologic Allergic/Immunologic ED: Denies mouth swelling or urticaria EXAM Physical Exam Const Vital Signs: 02/13/25 10:34 02/13/25 10:51 Temperature 97.8 F Temperature Source Oral Pulse Rate 102 H Respiratory Rate 16 Respiratory Effort Normal Respiratory Pattern Normal Blood Pressure 174/94 H Blood Pressure Mean 120 Pulse Ox 99 Oxygen Delivery Method Room Air Positive well nourished and well developed General Appearance ED: well developed and NAD HEENT Reports moist mucous membranes Neck supple and no JVD Neck Narrative: There is tenderness and spasm over the left cervical paraspinal muscles. There is no midline there is no bony crepitance or step-off. Range of motion was limited in all motions of the cervical spine secondary to pain. Strength is 5/5 bilateral in the upper extremities. There are no sensory deficits noted. Resp normal respiratory effort and clear to auscultation bilaterally Cardio regular rate and regular rhythm GI non-tender and non-distended Palpation: soft Neuro oriented x3, CN's II-XII intact bilaterally and no sensory deficits noted Sensorium / Orientation: alert Motor Exam: strength 5/5 throughout Psych mental status grossly normal MDM MDM MDM Narrative Medical decision making narrative: Differential diagnose includes cervical strain, cervical radiculopathy, spondylolisthesis, and degenerative arthritis. CT scan of the cervical spine will be obtained to assess for spondylolisthesis and degenerative arthritis. Radiography Diagnostic Testing: Clinical Impression(s) from Imaging Studies Cervical Spine CT 02/13/25 11:22 IMPRESSION: DEGENERATIVE CHANGES OF THE CERVICAL SPINE. NO EVIDENCE OF SIGNIFICANT OSSEOUS CENTRAL CANAL OR NEURAL FORAMINAL STENOSIS. Reading Location: [facility] CT scan of the cervical spine was obtained. There are degenerative changes. There is no canal or neuroforaminal stenosis. This was interpreted by the radiologist and was also independently reviewed by myself. Treatment and Re-Evaluation :: The patient was given an injection of morphine here. Patient was advised of her findings. Patient was instructed to use ice to the area. Patient was also instructed to use heat. Patient was instructed to follow-up with her primary care physician in 5 to 7 days. Patient was given a prescription for short course of [place]. Patient was also given a prescription for Flexeril to take at bedtime. Patient was instructed to return if worse in any way. Patient understood and was agreeable with the plan. All questions were answered. Discharge Plan Triage Chief Complaint: Other, Pain/Inj ED Provider: Demetri Shah Dx/Rx/DC Orders Clinical Impression: Acute cervical myofascial strain, Degenerative arthritis of cervical spine Instructions: ED Neck Sprain or Strain, ED Osteoarthritis Prescriptions: New hydrocodone-acetaminophen 5-325 mg tablet 1 tab PO Q6H PRN PRN (Reason: Pain) 3 Days Qty: 10 0RF cyclobenzaprine 10 mg tablet 10 mg PO QHS PRN PRN (Reason: Muscle Spasm) Qty: 10 0RF No Action levothyroxine 88 MCG tablet 88 mcg PO DAILY lisinopril 5 MG tablet 5 mg PO DAILY lovastatin 20 MG tablet 20 mg PO DAILY hydrocodone-homatropine [Hycodan] 5-1.5 mg/5 mL (5 mL) syrup 5 ml PO Q6H PRN (Reason: cough) 3 Days Qty: 60 0RF Primary Care Provider: Ness Mcbride Referrals: Ness Mcbride MD [Primary Care Provider] - 5-7 Days Print Language: Angolan Disposition Disposition: Home, Self Care
--- NOTE | 2025-02-13 11:22 | CT_ITS ---
PROCEDURE: SPINE CERVICAL WITHOUT CONTRAS 02/13/2025 REASON FOR EXAM: INJURY/PAIN TECHNIQUE: SPINE CERVICAL WITHOUT CONTRAS Coronal and Sagittal reconstruction series were provided. One or more dose reduction techniques were used (e.g., Automated exposure control, adjustment of the mA and/or kV according to patient size, use of iterative reconstruction technique. RADIATION DOSE SUMMARY: CTDlvol: 16.42 mGy DLP: 392.73 mGycm COMPARISON: None FINDINGS: Alignment: Straightening of the normal cervical lordosis. Vertebrae: No vertebral fracture is seen. Soft Tissues: No prevertebral soft tissue swelling. Other: C1-2: Mild degree of degenerative changes of the atlantoaxial joint. C2-3: Mild degree of facet joint osteoarthritis. C3-4: Mild degree of disc space narrowing. Uncovertebral arthrosis. Facet joint osteoarthritis. No significant stenosis seen. C4-5: Marked degree of disc space narrowing. Spondylosis. Uncovertebral arthrosis. Facet joint osteoarthritis. Bilateral neural foraminal stenosis worse on the right side. C5-6: Marked degree of disc space narrowing. Spondylosis. Uncovertebral arthrosis. Bilateral neural foraminal stenosis worse on the left side. C6-7: Mild degree of disc space narrowing. No significant abnormality is seen. C7-T1: Unremarkable CT/Spine Cervical without Contras IMPRESSION: DEGENERATIVE CHANGES OF THE CERVICAL SPINE. NO EVIDENCE OF SIGNIFICANT OSSEOUS CENTRAL CANAL OR NEURAL FORAMINAL STENOSIS. Reading Location: [id number]
[2025-02-13 12:55] VITALS: BP 154/90; PULSE 78; RESP 16; TEMP 36.6; O2SAT 97
== END 2025-02-13 13:02 | disposition home or self-care (01) ==
PROVIDERS: Emergency Provider Emergency Medicine; PCP Internal Medicine; Visit Provider Emergency Medicine
DX: M47.812 Spondylosis without myelopathy or radiculopathy, cervical region (principal); S16.1XXA Strain of muscle, fascia and tendon at neck level, initial encounter; I10 Essential (primary) hypertension; E78.00 Pure hypercholesterolemia, unspecified; Z85.850 Personal history of malignant neoplasm of thyroid; Z79.899 Other long term (current) drug therapy; Z98.51 Tubal ligation status; Z96.652 Presence of left artificial knee joint
CPT/HCPCS: 72125; 96372; 99282

== ENCOUNTER 2025-03-12 10:00 | Outpatient (RCR) | payer MEDICARE, SELFPAY ==
--- NOTE | 2025-02-20 10:46 | HP.PTEVAL ---
Patient's Visit Information Visit Information Visit Information: VASYL KELLY is a 85 year old F referred to Physical Therapy by ABEBE Duncan with a diagnosis of degenerative OA cervical. Date of Evaluation: 02/20/25 Physical Therapist: Demetri Sawyer, DPT, OCS, CSCS Visit Plan Frequency: 2x /Week Duration: 4 Weeks Plan: 2x/weeek for 2-4 weeks for IE HEEP cervical reetraction 20x and towel cervical B rotation 10x all 3x/day. Treat with...MH to upper ceervical, manual for rotation mobs upper cervical, manual traction, PROM rotation, sTM if needeed to upper cervical. Progress t ohome neck isometric and deep cervical strengtheners, oveersee pt returning to classes in weeek of 02/25 Subjective Subjective: L neck pain one week ago and could not move head. Went to ER and got morphine, vicodin and muscle relaxer adn sent to primary. Dr. Mcbride gave prednisone and it did wonders. Has soft collar she wore for 2 days. No pain and that continues. Sent to Dr. Herring and saw Gladys and who did X rays [facility] [place] [facility] showed OA in neck. Has seen neuro in past due to "bobblehead" and has been on muscle meds which took away tremors. Was losing some musce funciton prior to this episode and also had to modify ex last Tuesday. This started Tue without any other reason. Nearly back to normal now 85% better. Will avoid ex this week with weights for this week. PT to determine needs from this point. Maybe Dry needling and STM. Activities: normal Sleep is not great but that is normal for her. normal workout MWF Yoga T: core extreme, also does spinning and kettle black class on Tuesday and spinning. cardio fusion, Shine class on Tuesday(dance), Senior strength and then KB and spinning on . Tuesday is another class or two. Objective Objective: Walks into PT and [employer] chair normal without deficits. i and good balance, no evidence of pain. Full UE aROM, strength at 4/5 without myotomal problems in UE, sensation WNL to gross light touch UE, reflexes bi and tri 2/3 cervical AROM:34 L rotation adn 31 R no pain, 55 extension. Says rotations have always been poor. 42 L rotation after stretching. SB are 12 B. Not tender or tight through cervical musculature or scap musculature today. Posture is fair with slight FW head. overall unremarkable outside of lacking rotation ROM cervical. Balance/Special Test Scores Oswestry Neck Score: 20 Goals Goal 1:: cervical rotation ROM B 45 deegrees to aid in movement Goal Time Frame: 2-4 Weeks Goal 2:: Pt return to full boutique of ex in classes without pain and I mgmt of cervical strength adn ROM ex. Goal Time Frame: 4-6 Weeks Goal 3:: Neck oswestry 5 or betteer Goal Time Frame: 4-6 Weeks Goal 4:: Pt feel 100% better in neck pain and function Goal Time Frame: 4-6 Weeks Rehabilitation Potential Physical Therapy Diagnosis: stiffness in neck and poor confidence with ex return after pain incident. Rehabilitation Potential: Good Anticipated Interventions Patient/Client Instruction: Educate patient on: Condition and Plan of Care For the Purpose of:: To decrease pain, To increase ROM, To improve nutrient delivery to tissue and To improve muscle performance and motor function Therapeutic Exercise to Include: Strength training, Postural training, Flexibilty training, Passive ROM and Active ROM For the Purpose of:: To decrease pain, To increase ROM, To improve nutrient delivery to tissue and To improve muscle performance and motor function Manual Therapy Techniques to Include: Mobilization, Passive ROM and Soft tissue mobilization For the Purpose of:: To decrease pain, To increase ROM, To improve nutrient delivery to tissue, To improve muscle performance and motor function and To increase tolerance to activity/condition/position Thermo therapy (hot pack): Yes For the Purpose of:: To improve nutrient delivery to tissue Text: Thank you for the opportunity to evaluate your patient. For Medicare and Medicare HMO plans, please review the plan of care and approve it. It will need to be FAXED BACK to us at [phone] for Medicare purposes. For Medicare only, by signing this I certify the plan of care. Please let me know if there are questions or concerns regarding this plan of care. Physician Signature: Date:
--- NOTE | 2025-03-12 10:49 | HP.PTDCSUM ---
Discharge Summary D/C summary: It has been my pleasure to treat VASYL KELLY referred by ABEBE Duncan, with the diagnosis of degenerative OA cervical for a total of 7 visit(s). Discharge Date: 03/12/25 Please see the following information for a summary of their discharge status. Subjective Subjective: Done all the classes and no problem. [employer] weights to start. Washed blinds yestereday adn it takes longer and careful due to standing on a chair. Overall Improvement % Improvement: 100 Objective Objective/Function: 60 L rot, 55 R rot, 55 extension No pain with UE or neck movements. Overall doing well and will continue classes and HEP Goals Goal 1:: cervical rotation ROM B 45 deegrees to aid in movement Goal Progress: Goal Met Goal 2:: Pt return to full boutique of ex in classes without pain and I mgmt of cervical strength adn ROM ex. Goal Progress: Goal Met Goal 3:: Neck oswestry 5 or betteer Goal Progress: Goal Met Goal 4:: Pt feel 100% better in neck pain and function Goal Progress: Goal Met Plan Plan: d/c to HEP D/C Information d/c sentence: If there are questions or concerns regarding this patient's physical therapy, please feel free to call me at [phone]. Thank you for the referral of this patient. Sincerely, Demetri Sawyer, DPT, OCS, CSCS Balance/Gait/Functional tests Balance/Special Test Scores Oswestry Neck Score: 5 Improvement % Improvement: 100
== END 2025-03-12 14:28 | disposition home or self-care (01) ==
LOC: PT 10:00
PROVIDERS: PCP Internal Medicine; Referring Provider Student in an Organized Health Care Education/Training Program; Visit Provider Student in an Organized Health Care Education/Training Program
DX: M54.2 Cervicalgia (principal); M47.812 Spondylosis without myelopathy or radiculopathy, cervical region
CPT/HCPCS: 97110; 97140; 97161; 97530